=== PATIENT | male | born 1935 | race Caucasian/White ===

== ENCOUNTER 2017-09-29 11:21 | Outpatient (CLI) | payer MEDICARE, OTHER ==
[~2017-09-29 11:21] MED LIST: Iopamidol 370 76% 100 ML VIAL ONE
--- NOTE | 2017-09-29 13:56 | CT ---
CT CHEST WITH CONTRAST: Technique: Multiple axial tomograms were obtained through chest with IV enhancement. Indication: Pulmonary infiltrate. Comparison: No recent chest film comparison. Comparison is made to a portable exam from 2010. FINDINGS: Lungs show emphysematous change. There are early bullous changes in the upper lung roy. There is c onfluent opacification in the medial right upper lobe adjacent to the mediastinum. No air bronchogram s within this soft tissue opacity. This measures 5 cm AP dimension x up to 4 cm length in the axial p isabelle. Peripheral to this opacity, the streaky infiltrate and interstitial prominence suggesting infla mmatory process. There are areas of nodularity within this infiltrate seen in the right upper lung. Left lung appears clear of infiltrate. Nonspecific mediastinal lymph nodes are seen. There is a precarinal node measuring 1.6 cm. Numerous s mall AP window lymph nodes are seen, subcentimeter. Suprahilar adenopathy measuring up to 2 cm. Thoracic aorta shows atherosclerotic change. Images through the upper abdomen are unremarkable. IMPRESSION: 1. Confluent soft tissue density in the medial right upper lobe abutting the mediastinum concerning f or neoplastic lesion. There is peripheral infiltrate with interstitial and alveolar components in the peripheral right upper lobe with some areas of nodularity. The peripheral infiltrative change sugges ts inflammatory process, possibly superimposed on a neoplastic process. There is nonspecific adenopat hy as described. 2. Chronic lung parenchymal changes. POS: [facility]
== END 2017-09-29 11:22 | disposition home or self-care (01) ==
LOC: CT 11:21
PROVIDERS: ATTEND Internal Medicine
DX: R91.8 Other nonspecific abnormal finding of lung field (principal); R06.09 Other forms of dyspnea; J44.9 Chronic obstructive pulmonary disease, unspecified; J98.4 Other disorders of lung
CPT/HCPCS: 71260; 82565; 94060; 94727; 94729

== ENCOUNTER 2017-12-27 09:09 | Outpatient (CLI) | payer MEDICARE, OTHER ==
--- NOTE | 2017-12-27 10:34 | CT ---
CT CHEST WITHOUT CONTRAST ENHANCEMENT: History: Follow up persistent right upper lobe infiltrate. Comparison: 09-29-17 FINDINGS: There are emphysematous lung changes seen in both upper lobes. The soft tissue density which was in a right anterior paramediastinal location on the prior examination has largely resolved with only mini mal residual change remaining. The interstitial and nodular changes which involve the more peripheral portion of the left upper lobe is fairly similar in appearance to the previous examination. There is some nodular components to this which are felt to be fairly stable. One area of nodularity does appe ar slightly improved. It is the area seen on axial image 23 on the prior examination. This now appear s to be more related to the chronic interstitial lung changes which are seen peripherally. Changes in this area of a slightly honeycombing appearance. The left upper lobe and left lower lobe peripheral lung changes are fairly stable. Post op sternotomy changes are present. Thoracic aorta is normal in caliber. Visualized liver parenchyma shows no focal findings. Right and left adrenal glands are normal. IMPRESSION: 1. Severe COPD changes. 2. Almost complete resolution of the soft tissue density seen along the right side of the mediastinum in the upper lobe region. There is persistent interstitial nodular parenchymal changes in the right upper lobe. These involve more of the peripheral aspect of the lung and shows some progression but ov erall a fairly stable appearance. Areas of nodularity are the same or slightly smaller as compared to the prior examination. POS: [facility]
== END 2017-12-27 09:10 | disposition home or self-care (01) ==
LOC: BICCT 09:09
PROVIDERS: ATTEND Internal Medicine
DX: R91.8 Other nonspecific abnormal finding of lung field (principal)
CPT/HCPCS: 71250

== ENCOUNTER 2018-12-06 16:28 | Outpatient (CLI) | payer MEDICARE, OTHER ==
[2018-12-06 17:54] LABS: #Eosinphils 0.4 thou/uL (0.0-0.7); #Lymphocytes 1.9 thou/uL (1.20-3.40); #Monocytes 0.5 thou/uL (0.11-0.59); #Neutrophils 2.6 thou/uL (1.40-6.50); %Basophils 0.4 % (0.0-1.0); %Eosinophils 6.5 % (0.0-10.0); %Lymphocytes 35.3 % (21.0-51.0); %Monocytes 9.5 % (0.0-10.0); %Neutrophils 48.3 % (42.0-75.0); Hemoglobin 11.7 g/dL (14.0-18.0); Mean Corpuscular HGB CONC 34.8 g/dL (32.0-36.0); Mean Corpuscular Hemoglobin 32.2 pg (27.0-31.0); Mean Corpuscular Volume 92.6 fL (78.0-98.0); Mean Platelet Volume 7.2 fL (7.4-10.4); Platelet Count 165 thou/uL (130-400); RBC Distribution Width 12.4 % (11.5-14.5); Red Blood Cell (RBC) Count 3.64 mill/uL (4.70-6.10); White Blood Cell (WBC) Count 5.4 thou/uL (4.8-10.8)
[2018-12-06 18:11] LABS: ALT (SGPT) 9 U/L (8-55); AST (SGOT) 15 U/L (5-34); Albumin 3.8 g/dL (3.4-4.8); Alkaline Phosphatase 57 U/L (40-150); Anion Gap 12 mmol/L (10-20); BUN (Urea Nitrogen) 23 mg/dL (8.4-25.7); Bilirubin, Total 0.5 mg/dL (0.2-1.2); Calc. Creatinine Clearance 0 mL/min (70-130); Calcium 9.3 mg/dL (7.8-10.44); Carbon Dioxide 28 mmol/L (23-31); Chloride 105 mmol/L (98-107); Estimated GFR-MDRD 67; Globulin 3.1 g/dL (2.4-3.5); Glucose 144 mg/dL (83-110); Potassium 3.8 mmol/L (3.5-5.1); Protein, Total 6.9 g/dL (5.8-8.1); Sodium 141 mmol/L (136-145)
== END 2018-12-06 16:29 | disposition home or self-care (01) ==
LOC: LABBT 16:28
PROVIDERS: ATTEND Internal Medicine Cardiovascular Disease
DX: Z01.812 Encounter for preprocedural laboratory examination (principal); R94.39 Abnormal result of other cardiovascular function study
CPT/HCPCS: 80053; 85025

== ENCOUNTER 2018-12-08 05:38 | Day surgery (SDC) | payer MEDICARE, OTHER ==
[2018-12-06 16:55] VITALS: BMI 21.5
[2018-12-08] MEDS ORDERED: Diazepam 5 MG TAB ONE (06:12)
[2018-12-08] MEDS ORDERED: Lidocaine 1% (PF) 30 ML VIAL ONE ×2 (06:50→11:07)
[2018-12-08] MEDS ORDERED: Fentanyl 100 MCG/2 ML VIAL ONE (07:52)
[2018-12-08] MEDS ORDERED: Midazolam HCl 2 mg/2 ml Vial ONE (07:52)
[2018-12-08] MEDS ORDERED: Iopamidol 370 76% 100 ML VIAL ONE (17:05)
== END 2018-12-08 13:07 | disposition home or self-care (01) ==
LOC: CCL 05:38
PROVIDERS: ATTEND Internal Medicine Cardiovascular Disease
PROC: 4A023N7 Measurement of Cardiac Sampling and Pressure, Left Heart, Percutaneous Approach (ICD-10-PCS; principal; 2018-12-08)
PROC: B2051ZZ Plain Radiography of Left Heart using Low Osmolar Contrast (ICD-10-PCS; 2018-12-08)
DX: I25.10 Atherosclerotic heart disease of native coronary artery without angina pectoris (principal); E78.00 Pure hypercholesterolemia, unspecified; E11.9 Type 2 diabetes mellitus without complications; I50.22 Chronic systolic (congestive) heart failure; K21.9 Gastro-esophageal reflux disease without esophagitis; Z79.82 Long term (current) use of aspirin; Z79.899 Other long term (current) drug therapy; Z88.0 Allergy status to penicillin; Z91.041 Radiographic dye allergy status
CPT/HCPCS: 93459; 99152; 99153; C1769; J1644; J2001; J2250; J3010; Q9967